=== PATIENT | female | born 1980 | race Caucasian/White ===

== ENCOUNTER 2017-06-10 16:32 | Observation (INO) ==
--- OUTSIDE RECORDS SUMMARY | 2017-06-10 16:44 | External Medical Summary | Referral Summary ---
:1980 Author Organization [facility] [place] [address] Care Team Providers Name Role Phone Lizabeth Alba Primary Care Physician Encounter VC Date(s): 04/05/15 - 04/05/15 [facility] [place] [address] [place] Discharge Disposition: 01-Home or Self Care Attending Physician: Raisa Brown MD Admitting Physician: Raisa Brown MD Referring Physician: Lizabeth Alba MD Vital Signs Most recent to oldest [Reference Range]: 1 Temperature Tympanic [36.6-38.1 degC] 36.9 degC (04/05/15 9:25 AM) Peripheral Pulse Rate [60-100 bpm] 88 bpm (04/05/15 9:25 AM) Blood Pressure [90-140/60-90 mmHg] 124/82 mmHg (04/05/15 9:25 AM) Problem List Condition Effective Dates Status Health Status Informant Depression(Confirmed) Active (Confirmed) 2010 Resolved (Confirmed) 2011 Resolved (Confirmed) 2008 Resolved Torn meniscus(Confirmed) 2002 Active Allergies, Adverse Reactions, Alerts Substance Reaction Severity Status clindamycin Active Medications Flonase 50 mcg/inh nasal spray 2 sprays, Nasal, Daily, # 16 g, 0 Refill(s), Pharmacy: [facility] #[id number] Start Date: 04/05/15 Status: Ordered Results No data available for this section Immunizations No data available for this section Procedures Procedure Date Related Diagnosis Body Site /6 1/2 hr labor 2011 /13 hr labor 2010 17 hr labor 2008 Social History Social History Type Response Smoking Status Never smoker Assessment and Plan Extracted from: Title: Office Visit Note Author: Raisa Brown MD Date: 04/05/15 Assessment/Plan Sore throat Sore throat is keeping her awake at night and I think if she had less congestion of the nasal mucosa probably with associated drainage, that she would feel better. She may also try thr oat lozenges or Chloraseptic type throat spray as needed. If ibuprofen helps she can continue that. If she does have cough honey may help that as well. Ordered: Office Visit Level 3 Est 78056 Upper respiratory infection To decrease the swelling of the nasal mucosa, drainage and sore throat, we will add intranasal steroid spray. She understands how to use this and that it is symptomatic treatment. She also understands that antibiotics are not needed for viral illness. Ordered: fluticasone nasal, 2 sprays, Nasal, Daily, # 16 g, 0 Refill(s), Pharmacy: [facility] #[id number] Office Visit Level 3 Est 99642
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
--- OUTSIDE RECORDS SUMMARY | 2017-06-10 16:44 | External Medical Summary | Continuity of Care Document ---
:1980 Author Organization [facility] Address [address] [place], [place] [id number] Phone Care Team Providers Name Role Phone Annmarie Barrera MD Unavailable Unavailable Allergies, Adverse Reactions, Alerts Substance Reaction Severity Status clindamycin Rash Unknown Active adhesive Blister Unknown Active mold sore throat Unknown Active Medications Medication Instructions Dosage Effective Dates (start - Status Comments stop) DHA+Complete - Active 30 mg-975 mcg-300 mg oral pack Problems Condition Effective Dates (start - stop) Clinical Status Encounter for suprvsn of normal - , second trimester 27 weeks gestation of - Supervision of elderly multigravida, - first trimester Pap Smear Screening, Cervix - Encounter for suprvsn of normal - , first trimester 10 weeks gestation of - Supervision of elderly multigravida, - second trimester 14 weeks gestation of - Supervision of elderly multigravida, - second trimester 23 weeks gestation of - Supervision of elderly multigravida, - second trimester 18 weeks gestation of - Encounter for suprvsn of normal - , second trimester 18 weeks gestation of - Dysmenorrhea Active Procedures Procedure Date OB Visit No Charge Hemoglobin count, colorimetric Hematocrit blood count Glucose test Venpnctr fngr/heel/ear stick routne Results Test Name Date and Time Measure Units Reference Range Abnormal Flag Comments Panel Description: Glucose [Mass/volume] in Serum or Plasma --1 hour post 50 g glucose PO GLUCOSE, GESTATIONAL 85 mg/dL <140 N Test performed at [facility] SCREEN (50G)-140 15:09:00 DIAGNOSTICS [id number] [place] [address]Smidicsk: DONN CARLOS DO,MPH Panel Description: HEMOGLOBIN + HEMATOCRIT HEMOGLOBIN 15:09:00 12.3 g/dL 11.7-15.5 N HEMATOCRIT 15:09:00 37.6 % 35.0-45.0 N REPORT COMMENT:FASTING :NOTest performed at [facility] [id number] [place] [id number]: DONN CARLOS DO,MPH Advance Directives Directive Yes / No Effective Date File Name Unknown Encounters Encounter Practice Location Reason(s) Diagnoses Date Provider Care Description For Visit Team Members Danny [place] [facility] [facility] [address] [place]. [facility] [place], normal 7 700 [address], , [place], [place], [facility] , [email or web address] Rob Giles weeks gestation 120, tel:+ of [place], [id number] , [place]. tel: [phone] Danny [place] Supervision of Mar- Jimenez In Women elderly 3-201 [place]. Health JORDAN, multigravida, 7 700 [address], second [place], [email or web address] Center [id number], weeks gestation [place] of 120, tel:+ [place] [address] [place] [address], [id number] , [place]. tel: [phone] Danny [place] Encounter for February- [facility] [facility] of 8-201 [place]. [facility], normal 7 700 [address], , [place], [place], [facility] [id number], [email or web address] Rob Giles weeks gestation 120, tel:+ of [place], [id number] , [place]. tel: [phone] Danny [place] Supervision of May-0 Jimenez In Womens Ultrasound elderly 8-201 Jasmin. Health [place], multigravida, 7 700 [address], [place], [place], [id number] Center [id number], weeks gestation Rob G[place] of 120, tel:[phone] [place], [phone] [place], [id number] , [place]. tel: [phone] Danny [place] Supervision of Apr- Jimenez In Womens elderly 0-201 Jasmin. Health [place], multigravida, 7 700 [address], [place], [place], [email or web address] Center [id number], weeks gestation Rob Giles of 120, tel:[phone] [place], [address] [place], [id number] , [place]. tel: [phone] Danny [place] Supervision of Mar- Jimenez In Womens elderly 3-201 Jasmin. Health [place], multigravida, 7 700 [address], [place], [place], trimesterPap Center [id number], Smear Screening, Rob Giles CervixEncounter 120, tel:[phone] for suprvsn of [place], [address] normal [place], , first [phone] [email or web address] , [place]. weeks gestation tel: of [phone] Family History Family Member Diagnosis Age At [...] Grandmother Diabetes Immunizations Vaccine Date Status Comments Influenza, injectable, quadrivalent, completed Source: Other Provider preservative free, 3 yrs or older Payers Payer name Insurance type Covered democrat ID Authorization(s) A[employer] [id number] Social History Type Description Quantity Date Captured Alcohol Use Details No Caffeine Use Details Unknown Tobacco Use Status Unknown Smoking Status Never smoker Vital Signs Date / Height Weight BMI Pulse Blood Temperature Respiratory Body Head BMI Time: Rate Pressure Rate Surface Circumference percentile Area 213.60 39.0 115/76 2017 lbs 6 mm[Hg] 2:52 kg/m PM eter (2) 38.2 2 2:51 kg/m PM eter (2) Chief Complaint And Reason For Visit Unknown Chief Complaint And Reason For Visit Reason For Referral Reason For Referral Unknown Plan Of Care Date Type Action Status Appointment Myra Myles BOOKED Future Order: Radiology Order OB Detailed Complete Ultrasound Ordered ([id number]) Date Type Problem Goal Intervention Status Start [...]
--- OUTSIDE RECORDS SUMMARY | 2017-06-10 16:44 | External Medical Summary | Referral Summary ---
:1980 Author Organization [facility] Address [address] [place] [address] [place] [address] Care Team Providers Name Role Phone Annmarie Barrera Primary Care Physician Encounter VC Date(s): 10/26/16 - 10/26/16 [facility], [address] [place] [address] [place] Discharge Diagnosis: Viral URI with cough Discharge Disposition: 01-Home or Self Care Attending Physician: Isaiah Muñiz MD Admitting Physician: Isaiah Muñiz MD Vital Signs Most recent to oldest [Reference Range]: 1 Temperature Tympanic [36.6-38.1 degC] 36.6 degC (10/26/16 8:41 AM) Peripheral Pulse Rate [60-100 bpm] 112 bpm *HI* (10/26/16 8:41 AM) Blood Pressure [90-140/60-90 mmHg] 120/75 mmHg (10/26/16 8:41 AM) SpO2 98 % (10/26/16 8:41 AM) Problem List Condition Effective Dates Status Health Status Informant Depression(Confirmed) Active (Confirmed) 2010 Resolved (Confirmed) 2011 Resolved (Confirmed) 2008 Resolved Torn meniscus(Confirmed) 2002 Active Allergies, Adverse Reactions, Alerts Substance Reaction Severity Status Adhesive Bandage Active clindamycin Active Medications Essential Oils Essential Oils, 0 Refill(s) Start Date: 10/26/16 Status: Ordered Results No data available for this section Immunizations No data available for this section Procedures Procedure Date Related Diagnosis Body Site /6 1/2 hr labor 2011 /13 hr labor 2010 17 hr labor 2008 Social History Social History Type Response Smoking Status Never smoker Assessment and Plan Extracted from: Title: Immediate care Author: Isaiah Muñiz MD Date: 10/26/16 Assessment/Plan 1.Viral URI with cough Discussed symptomatic management such as Mucinex, nasal saline washes, and vaporizer. Antibiotics are not indicated at this time. Follow-up when necessary.
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
--- OUTSIDE RECORDS SUMMARY | 2017-06-10 16:44 | External Medical Summary | Referral Summary ---
:1980 Author Organization [facility] [place] [address] Care Team Providers Name Role Phone Tamara Hammonds Primary Care Physician Encounter VC Date(s): 04/10/16 - 04/10/16 [facility] [place] [phone] [place] Discharge Disposition: 01-Home or Self Care Attending Physician: Balaji Garcia APRN Admitting Physician: Balaji Garcia APRN Vital Signs Most recent to oldest [Reference Range]: 1 Peripheral Pulse Rate [60-100 bpm] 80 bpm (04/10/16 11:30 AM) Respiratory Rate [14-20 br/min] 18 br/min (04/10/16 11:30 AM) Blood Pressure [90-140/60-90 mmHg] 120/78 mmHg (04/10/16 11:30 AM) SpO2 98 % (04/10/16 11:30 AM) Problem List Condition Effective Dates Status Health Status Informant Depression(Confirmed) Active (Confirmed) 2010 Resolved (Confirmed) 2011 Resolved (Confirmed) 2008 Resolved Torn meniscus(Confirmed) 2002 Active Allergies, Adverse Reactions, Alerts Substance Reaction Severity Status clindamycin Active Medications Bactrim DS 800 mg-160 mg oral tablet 1 tabs, Oral, BID, X 10 days, # 20 tabs, 0 Refill(s), Pharmacy: [facility] #[id number] Start Date: 04/10/16 Stop Date: 04/20/16 Status: OrderedFlonase 50 mcg/inh nasal spray 2 sprays, Nasal, Daily, # 16 g, 0 Refill(s), Pharmacy: [facility] #[id number] Start Date: 04/05/15 Status: Suspended Results Urinalysis Most recent to oldest [Reference Range]: 1 UA Color [place] *ABN* (04/10/16 11:40 AM) UA Appear Clear (04/10/16 11:40 AM) UA pH [5.0-8.0] 5.5 (04/10/16 11:40 AM) UA Leuk Est [Negative] - 1 (04/10/16 11:40 AM) UA Nitrite [Negative] - 2 (04/10/16 11:40 AM) UA Protein [Negative] Negative (04/10/16 11:40 AM) UA Glucose [Negative] - 3 (04/10/16 11:40 AM) UA Ketones [Negative] Negative (04/10/16 11:40 AM) UA Urobilinogen [<=1.0 mg/dL] 0.2 mg/dL (04/10/16 11:40 AM) UA Bili [Negative] Negative (04/10/16 11:40 AM) UA Blood [Negative] Negative (04/10/16 11:40 AM) UA Spec Grav [1.003-1.030] 1.010 (04/10/16 11:40 AM) Type Cl Catch (04/10/16 11:40 AM) UA WBC [0-4] 0-2 (04/10/16 11:40 AM) UA RBC [0-2] 0-2 (04/10/16 11:40 AM) Epithelial Cells 0-2 (04/10/16 11:40 AM) UA Bacteria Rare (04/10/16 11:40 AM) 1Result Comment: This component of the urinalysis cannot be performed due to the presence of dye stain which interferes with the testing procedure.2Result Comment: This component of the urinalysis cannot be performed due to the presence of dye stain which interferes with the testing procedure.3Result Comment: This component of the urinalysis cannot be performed due to the presence of dye stain which interferes with the testing procedure. Immunizations No data available for this section Procedures Procedure Date Related Diagnosis Body Site /6 1/2 hr labor 2011 /13 hr labor 2010 17 hr labor 2008 Social History Social History Type Response Smoking Status Never smoker Assessment and Plan No data available for this section
--- OUTSIDE RECORDS SUMMARY | 2017-06-10 16:44 | External Medical Summary | Referral Summary ---
:1980 Author Organization [facility] [place] [address] Care Team Providers Name Role Phone Tamara Hammonds Primary Care Physician Encounter VC Date(s): 05/22/16 - 05/22/16 [facility] [place] [phone] [place] Discharge Diagnosis: Dysmenorrhea Discharge Diagnosis: Heel pain, bilateral Discharge Disposition: 01-Home or Self Care Attending Physician: Tamara Hammonds DO Admitting Physician: Tamara Hammonds DO Vital Signs Most recent to oldest [Reference Range]: 1 Temperature Tympanic [36.6-38.1 degC] 36.9 degC (05/22/16 3:25 PM) Peripheral Pulse Rate [60-100 bpm] 72 bpm (05/22/16 3:25 PM) Respiratory Rate [14-20 br/min] 17 br/min (05/22/16 3:25 PM) Blood Pressure [90-140/60-90 mmHg] 118/70 mmHg (05/22/16 3:25 PM) SpO2 98 % (05/22/16 3:25 PM) Problem List Condition Effective Dates Status Health Status Informant Depression(Confirmed) Active (Confirmed) 2010 Resolved (Confirmed) 2011 Resolved (Confirmed) 2008 Resolved Torn meniscus(Confirmed) 2002 Active Allergies, Adverse Reactions, Alerts Substance Reaction Severity Status clindamycin Active Medications No Known Medications Results No data available for this section Immunizations No data available for this section Procedures Procedure Date Related Diagnosis Body Site /6 1/2 hr labor 2011 /13 hr labor 2010 17 hr labor 2008 Social History Social History Type Response Smoking Status Never smoker Assessment and Plan Extracted from: Title: Office Visit Note Author: Tamara Hammonds DO Date: 05/22/16 Assessment/Plan Dysmenorrhea We discussed multiple options today includingcontinuing with what she is doing and utilizing baby aspirin for clotting or Imodium for heavy cramping in addition to what she already is utilizing. We also discussed various control options especially those that didn't contain estrogen in case this is what gave her the moodiness. We also discussedmore permanent options such as endometrial ablation orpartial hysterectomy. Patient will think about all of this and let us know if she wishes to pursue anything. Ordered: Office Visit Level 4 Est 18290 Heel pain, bilateral Patient was given a handout of exercises to try and a note for work so that she can wear tennis shoes. Patient was recommended to go to chiropractor to see if this would be of any benefit to her. We also discussed podiatricreferralif this was not found to be effective. She will return to clinic if it is not effective and she wishes to pursue something further. Otherwise she will return to clinic in 1 year. Ordered: Office Visit Level 4 Est 98011
[2017-06-11 23:58] VITALS: BMI 36.2
== END 2017-06-10 19:33 | disposition home or self-care (01) ==
LOC: MC
PROVIDERS: ADMIT Obstetrics & Gynecology; ATTEND Obstetrics & Gynecology

== ENCOUNTER 2017-06-19 06:00 | Inpatient (IN) ==
[2017-06-19] MEDS ORDERED: LIDOCAINE 1% (10mg/ml) 2mL INJ PF SDV ID PRN (06:23)
[2017-06-19] MEDS ORDERED: OXYTOCIN DRIP 30 UNIT/500 ML ML IV PRN (06:23)
[2017-06-19] MEDS ORDERED: CARBOPROST 250 MCG/ML INJECTION IM PRN (06:23)
[2017-06-19] MEDS ORDERED: ACETAMINOPHEN 500 MG TABLET PO PRN (06:23)
[2017-06-19] MEDS ORDERED: MAG-AL + SIM ORAL LIQUID 30ml PO PRN (06:23)
[2017-06-19] MEDS ORDERED: D5LR 1,000 ML IV PRN (06:23)
[2017-06-19] MEDS ORDERED: CALCIUM CARBONATE Chewable 500mg TABLET PO PRN (06:23)
[2017-06-19] MEDS ORDERED: METHYLERGONOVINE 0.2 MG/ML INJECTION IM PRN (06:23)
[2017-06-19] MEDS: LR 1,000 ML IV PRN ×2 (06:53→08:47)
[2017-06-19 07:06] VITALS: BMI 40.0
--- NOTE | 2017-06-19 10:10 | Anesthesia Preoperative Report ---
Anesthesia Epidural/Spinal Rec - Date and Time Date: 06/19/17 Procedure: Labor Epidural Plan: Epidural - Vital Signs Vital Signs: Temperature 98.2 F 06/19/17 07:06 Pulse Rate 97 06/19/17 07:06 Respiratory Rate 16 06/19/17 07:06 Blood Pressure 134/82 06/19/17 07:06 /Para: P:3 - Medictaions & Allergies Inpatient Medications: Current Medications Acetaminophen (Tylenol) 500 - 1,000 mg PO Q4H PRN PRN Reason: Pain Al Hydroxide/Mg Hydroxide (Maalox Plus) 30 ml PO Q3H PRN PRN Reason: Indigestion Calcium Carbonate (Tums) 500 - 1,000 mg PO Q2H PRN PRN Reason: Indigestion Carboprost Tromethamine (Hemabate) 250 mcg IM O PRN PRN Reason: .Downtime Lactated Ringer's (Lactated Ringers) 1,000 mls @ 999 mls/hr IV .Q1H1M PRN Last Admin: 06/19/17 08:47 Dose: 999 mls/hr Oxytocin (Pitocin Drip) 30 unit in 500 mls @ 2 mls/hr IV .Q24H PRN; Protocol PRN Reason: Induction/Augmentation Last Admin: 06/19/17 06:57 Dose: 2 mls/hr Dextrose/Lactated Ringer's (Dextrose 5%-Lactated Ringers) 1,000 mls @ 125 mls/ hr IV .Q8H PRN PRN Reason: Labor Last Admin: 06/19/17 06:54 Dose: 125 mls/hr Lidocaine HCl (Xylocaine-Mpf 1% Vial) 0.2 mg ID O PRN PRN Reason: IV Start Methylergonovine Maleate (Methergine) 0.2 mg IM O PRN Misoprostol (Cytotec) 800 mcg OK ONCE PRN Allergies/Adverse Reactions: Allergies Allergy/AdvReac Type Severity Reaction Status Date / Time adhesive tape Allergy Severe BLISTERING Verified 06/19/17 07:38 - Home Medications Home Medications: Home Medications Medication Instructions Recorded Confirmed Type Vits W-Ca,Fe,Fa(<1MG) 1 tab PO DAILY #0 07/11/12 06/19/17 History ( Vitamins) - Medical History Respiratory: DENIES: Asthma, Bronchitis, Chronic Obstructive Pulmonary Disease (COPD), Dyspnea, Orthopnea, Pulmonary Embolism, Pneumonia, Upper Respiratory Infection, Pulmonary Edema, Sleep Apnea, Tuberculosis, Other Cardiovascular: Reports: Hypertension (PIH) Gastrointestional: Reports: Gastroesophageal Reflux Disease, Morbid Obesity Neuro/Musculoskeletal: Denies: HX.MS.OSAR, Back Problems, Cerebrovascular Accident, Depression, Headaches, Loss of Consciousness, Muscle Weakness, Neuromuscular Disorder, Paralysis, Paresthesia, Syncope, Seizures, Other Renal/Endocrine: DENIES: Diabetes Mellitus Type 1, Diabetes Mellitus Type 2, Renal Failure, Dialysis, Thyroid Disease, Weight Loss, Weight Gain, Other Other History: Reports: Now - Surgical History Anesthesia Reactions: None Hx Family Anesthesia Reaction: No History of Motion Sickness: No - Social History Smoking Status: Never smoker Substance Use Type: does not use Alcohol Intake Frequency: does not drink - Pertinent Findings Lab Data: CBC and BMP 06/19/17 06:43 06/19/17 06:43 BMP 06/19/17 06:43 Sodium 138 Potassium 3.9 Chloride 111 H Carbon Dioxide 20 L BUN 8.0 Creatinine 0.6 L Glucose 85 Calcium 9.6 Liver Function 06/19/17 Range/Units 06:43 Total Bilirubin 0.40 (0.20-1.30) MG/DL AST 37 H (14-36) U/L ALT 36 (9-52) U/L Alkaline Phosphatase 121 (38-126) U/L Albumin 3.5 (3.5-5.0) G/DL EKG Rhythm: Normal Sinus Rhythm - Physical Exam Respiratory Exam: lungs clear, bilateral breath sounds equal Cardiovascular Exam: regular rate and rhythm, no murmur - Airway Assessment Mallampati Score: III TMD: 2 Fingerbreadths Neck Extension: fair Overall Assessment: may be difficult intubation - ASA ASA Score: 2 - Discussion Discussion: Discussed risks/options/alternatives of anesthesia and questions answered. Patient consents. Nursing pain assessment noted. Anesthesia Discussion: spouse Attestation Statement: Prior to the delivery of any anesthetic medication, I examined the patient, developed the plan, obtained the patient's consent and discussed the risk and benefits of the procedure with the patient/guardian.
[2017-06-19] MEDS ORDERED: DiphenhydrAMINE 25 MG CAPSULE PO PRN (12:48)
[2017-06-19] MEDS ORDERED: HYDROCORTISONE 2.5% CREAM 30gm RECTALLY PRN (12:48)
[2017-06-19] MEDS ORDERED: OXYTOCIN DRIP 30 UNIT/500 ML ML IV SCH (12:48)
[2017-06-19] MEDS ORDERED: ROPIVACAINE 0.2% 2MG/ML INJ 40 MG, SUFentanil 50 MCG in NS 100 ML ID ONE (14:24)
--- NOTE | 2017-06-19 15:52 | Labor and Delivery Note ---
DATE 06/19/2017 Myra is a 36-year-old 4, para 3 at 37 weeks gestational age who was brought in for a Pitocin induction this morning due to gestational hypertension. Her membranes were ruptured artificially returning clear fluids. She received an epidural. She progressed nicely throughout labor and only had to push for a few contractions. Baby rotated from OP to OA and she had a spontaneous vaginal delivery of a viable male , Apgars 7/9 weight 2689 grams, name "Darrell". Baby was vigorous at delivery so he was placed on mom's abdomen and the cord clamping was delayed for more than two minutes. The placenta delivered spontaneously. She had a left periurethral laceration that was bleeding so it was repaired with 3-0 chromic. She also had a superficial first-degree laceration of the perineum that was not bleeding so it was not repaired. Mom and baby tolerated the delivery well. [facility]
[2017-06-19] MEDS: IBUPROFEN 800 MG TABLET PO PRN (17:00)
[2017-06-19] MEDS: HYDROCODONE/APAP 5mg/325mg TABLET PO PRN (21:22)
[2017-06-20] MEDS: HYDROCODONE/APAP 5mg/325mg TABLET PO PRN ×2 (05:37→19:51)
--- NOTE | 2017-06-20 08:09 | OB/GYN Progress Note ---
OB-PP Progress Note - General PPD1 Maternal Group B Strep: Negative (o) Maternal blood type: O+ Maternal Rubella Status: Immune - Subjective Date: 06/20/17 Lochia: Minimal Pain: contolled Voiding: voiding - Objective Vital Signs: Last Vital Signs Temp 98.1 F 06/19/17 23:30 Pulse 79 06/19/17 23:30 Resp 16 06/19/17 23:30 BP 121/74 06/19/17 23:30 Pulse Ox 98 06/19/17 23:30 General: alert and oriented Abdomen: fundus firm, non-tender Extremities: non-tender Laboratory: Laboratory Results - last 24 hr 06/19/17 06:43 Turbidity < 20 Sodium 138 Potassium 3.9 Chloride 111 H Carbon Dioxide 20 L Anion Gap 7 BUN 8.0 Creatinine 0.6 L GFR Calculation 114 BUN/Creatinine Ratio 13 Glucose 85 Calculated Osmolality 263 Calcium 9.6 Total Bilirubin 0.40 Conjugated Bilirubin 0.00 Unconjugated Bilirubin 0.00 Icterus Index < 2 AST 37 H ALT 36 Alkaline Phosphatase 121 Total Protein 6.5 Albumin 3.5 Globulin 3.0 Albumin/Globulin Ratio 1.2 Specimen Hemolysis < 15 - Assessment Assessment: , Gestational HTN - Plan Plan: routine care, discharge home, continue PNV
[2017-06-20] MEDS ORDERED: DOCUSATE CALCIUM 240 MG CAPSULE PO SCH (09:00)
--- NOTE | 2017-06-20 09:03 | Anesthesia Postoperative Note ---
- Date and Time Date: 06/20/17 Time: 09:03 - Status Patient Participated in Evaluation: Patient Participated in Person Vital Signs: Temperature 98.0 F 06/20/17 07:00 Pulse Rate 86 06/20/17 07:00 Respiratory Rate 16 06/20/17 07:00 Blood Pressure 121/74 06/20/17 07:00 Pulse Oximetry 98 06/19/17 23:30 Respiratory Function: Airway Patent Cardiovascular Function: Regular Pulse EKG Rhythm: Normal Sinus Rhythm Mental Status: Alert and Oriented Hydration: Taking PO Fluids Complications During Recover: None Apparent - Follow-Up Instructions Instructions: Per Surgeon
[2017-06-20] MEDS: IBUPROFEN 800 MG TABLET PO PRN (15:57)
[2017-06-20 16:16] VITALS: PULSE 90
[2017-06-20 19:05] VITALS: BP 127/79; RESP 18; TEMP 98.2; O2SAT 99
== END 2017-06-20 20:22 | disposition home or self-care (01) | DRG 775 ==
LOC: MC 06:07
PROVIDERS: ADMIT Obstetrics & Gynecology; ATTEND Obstetrics & Gynecology